=== PATIENT | female | born 1970 | race Caucasian/White ===

== ENCOUNTER 2021-11-14 19:52 | Emergency (ER) | payer MEDICAID ==
[~2021-11-14] VITALS: Ht 170.2 cm; Wt 66.0 kg
[2021-11-14 22:09] VITALS: BP 124/87
== END 2021-11-14 22:10 | disposition home or self-care (01) ==
LOC: ER 19:53
DX: N92.4 Excessive bleeding in the premenopausal period (principal); I10 Essential (primary) hypertension; J45.909 Unspecified asthma, uncomplicated
CPT/HCPCS: 99281; 99284